=== PATIENT | female | born 2000 | race Caucasian/White ===

== ENCOUNTER 2023-08-04 09:33 | Emergency (ER) | payer BC, MEDICAID, SELFPAY ==
[2023-08-04 09:47] VITALS: BP 140/86; PULSE 90; RESP 16; TEMP 36.6; O2SAT 100; BMI 34.5
--- NOTE | 2023-08-04 10:03 | W.ED.RECABL ---
Documented by User: Steff Key, CAT[employer] UNIT OPERATOR-C 08/04/23 13:56 HPI - Recheck/Abnormal Lab/Rx General: Chief Complaint: Recheck/Abnormal Lab/Rx Stated Complaint: sent by white/abn lab Time Seen by Provider: 08/04/23 09:52 History of Present Illness: Patient reports today for low hemoglobin. She states that she had went to her primary care provider to have blood work yesterday because she had been feeling more mentally exhausted and tired than typical. She reports that she has really no other symptoms at this time. She reports that she received a call this morning that her hemoglobin was extremely low and she needed to come directly to the emergency department. Patient reports feeling generally well. She denies fever, chills, nausea, vomiting. She denies chest pain or shortness of breath. She denies any pain. She denies any bleeding in her urine or her bowels. She states that she is on the tail end of her menstrual cycle which is typically very irregular. She denies any abnormal or heavy bleeding or clotting. She denies . Review of Systems Const: Denies: fever(s), chills or body aches Eyes: Denies: change in vision or blurry vision Card: Denies: chest pain, palpitations, irregular heart rhythm, lightheadedness or syncope Resp: Denies: dyspnea, productive cough or non-productive cough GI: Denies: abdominal pain, nausea or vomiting : Denies: flank pain, difficulty voiding, dysuria, urinary frequency, urinary urgency or urinary hesitancy Musc: Denies: neck pain or back pain Neuro: Denies: headache(s), numbness in extremities or weakness in extremities Physical Exam Const: COMMON NORMALS: no acute distress, patient oriented x3 and alert GENERAL APPEARANCE: cooperative ORIENTATION/CONSCIOUSNESS: Yes awake, Yes oriented to person, Yes oriented to place and Yes oriented to time Neck/C-Spine: COMMON NORMALS: full ROM Resp: COMMON NORMALS: normal respiratory effort, No retractions, No use of accessory muscles and clear to auscultation bilaterally EFFORT & INSPECTION: Yes symmetric chest movement AUSCULTATION: clear to auscultation bilaterally Cardio: COMMON NORMALS: regular rate, regular rhythm, S1 normal heart sound present and S2 normal heart sound present RATE: regular rate RHYTHM: regular rhythm HEART SOUNDS: S1 normal heart sound present and S2 normal heart sound present GI: COMMON NORMALS: Normal to inspection, nondistended, normoactive bowel sounds present, Soft to palpation, non-tender, No hepatosplenomegaly present, no masses and no bruits INSPECTION: Yes normal to inspection PALPATION: Yes Soft to palpation and Yes No hepatosplenomegaly present : COMMON NORMALS: Yes no CVA tenderness BLADDER/KIDNEY EXAM: Yes no CVA tenderness Back/Pelvis: COMMON NORMALS: no CVA tenderness Neuro: COMMON NORMALS: patient oriented x3 SENSORIUM/ORIENTATION: Yes alert, Yes oriented to person, Yes oriented to place and Yes oriented to time Psych: COMMON NORMALS: cooperative Skin: NARRATIVE SKIN EXAM: Pale skin tone Course Vital Signs: Vital signs: Vital Signs Temperature 97.8 F 08/04/23 09:47 Pulse Rate 90 08/04/23 09:47 Respiratory Rate 16 08/04/23 09:47 Blood Pressure 140/86 08/04/23 09:47 Pulse Oximetry 100 08/04/23 09:47 Oxygen Delivery Me thod Room Air 08/04/23 09:47 MDM - Recheck/Abnormal Lab/Rx Medical Decision Making This is a 22-year-old female who presented today for low hemoglobin. She reports the only symptom she has had is decreased energy feeling mental fog. She reports that she did try and donate blood not long ago and was declined because her hemoglobin was low. She does offer that she has a diet that is not rich in nutrients. She eats a lot of junk food and fast food. She does not eat a lot of red meat. She does not take her multivitamin. It was reported that her hemoglobin was 6.5 from the primary care provider. Recheck in the ER hemoglobin is 6.7 with an MCV of 66. I have discussed this case at length with Dr. Jensen. Full anemia panel was added on. He agrees with discharging the patient to go to the outpatient facility at the [facility] for blood transfusion. 2 units of packed red blood cells with premedication with Benadryl and Tylenol are ordered. Patient is encouraged to continue taking her iron at home. Follow-up with her primary care provider in the next 3 to 5 days. Return to the ER as needed for new or worsening symptoms Lab Data 08/04/23 10:00 08/04/23 10:00 Laboratory Results WBC 8.42 10^3/uL (3.29-11.43) 08/04/23 10:00 RBC 4.07 10^6/uL (3.85-5.65) 08/04/23 10:00 Hgb 6.70 g/dL (11.27-16.99) L 08/04/23 10:00 Hct 27.0 % (36-47) L 08/04/23 10:00 MCV 66.3 fl (85-98) L 08/04/23 10:00 MCH 16.5 pg (27-33) L 08/04/23 10:00 MCHC 24.8 g/dL (30-55) L 08/04/23 10:00 RDW 20.3 % (12.1-15.1) H 08/04/23 10:00 Plt Count 440 10^3/cmm (157-399) H 08/04/23 10:00 MPV 9.9 fL (7.4-10.4) 08/04/23 10:00 Neut % (Auto) 50.4 % 08/04/23 10:00 Lymph % (Auto) 36.7 % 08/04/23 10:00 [place] % (Auto) 9.4 % 08/04/23 10:00 Eos % (Auto) 2.0 % 08/04/23 10:00 Baso % (Auto) 1.1 % 08/04/23 10:00 Reticulocyte % (Auto) 2.3 % (0.5-2.0) H 08/04/23 10:00 Neut # (Auto) 4.25 10^3/uL (1.8-7.7) 08/04/23 10:00 Lymph # (Auto) 3.1 10^3/uL (0.8-4.8) 08/04/23 10:00 [place] # (Auto) 0.8 10^3/uL (0.2-0.9) 08/04/23 10:00 Eos # (Auto) 0.2 10^3/uL (0.0-0.8) 08/04/23 10:00 Baso # (Auto) 0.1 10^3/uL (0.0-0.1) 08/04/23 10:00 Nucleated RBC % (auto) 0.4 % 08/04/23 10:00 Nucleated RBCs # 0.0 /100WBC 08/04/23 10:00 Sodium 137 mmol/L (136-145) 08/04/23 10:00 Potassium 4.1 mmol/L (3.5-5.1) 08/04/23 10:00 Chloride 103 mmol/L (98-107) 08/04/23 10:00 Carbon Dioxide 22 mmol/L (22-29) 08/04/23 10:00 Anion Gap 16.1 (5-19) 08/04/23 10:00 BUN 7 mg/dL (6-20) 08/04/23 10:00 Creatinine 0.7 mg/dL (0.5-0.9) 08/04/23 10:00 GFR Calculation 103.7 mL/min (90-130) 08/04/23 10:00 Glucose 98 mg/dL (65-115) 08/04/23 10:00 Calculated Osmolality 282 mOsm/kg (285-295) L 08/04/23 10:00 Calcium 9.0 mg/dL (8.5-10.5) 08/04/23 10:00 Iron 12 ug/dL (37-145) L 08/04/23 10:00 TIBC 412 mcg/dl 08/04/23 10:00 % Saturation 2.9 % (20-50) L 08/04/23 10:00 Unsat Iron Binding 400 ug/dL (112-347) H 08/04/23 10:00 Ferritin 8 ng/mL (15-150) L 08/04/23 10:00 Total Bilirubin 0.2 mg/dL (0.15-1.2) 08/04/23 10:00 AST 14 U/L (0-32) 08/04/23 10:00 ALT 15 U/L (0-33) 08/04/23 10:00 Alkaline Phosphatase 65 U/L (35-105) 08/04/23 10:00 Total Protein 6.7 g/dL (6.6-8.7) 08/04/23 10:00 Albumin 4.6 g/dL (3.5-5.2) 08/04/23 10:00 Globulin 2.1 g/dL (1.3-4.6) 08/04/23 10:00 Vitamin B12 248 pg/mL (232-1245) 08/04/23 10:00 Folate < 20.0 ng/mL (4.8-37.3) 08/04/23 10:00 HCG, Qual Negative (Negative) 08/04/23 10:00 Blood Type Cancelled 08/04/23 10:37 Rho(D) Type Cancelled 08/04/23 10:37 Antibody Screen Cancelled 08/04/23 10:37 Crossmatch See Detail 08/04/23 10:37 Discharge Plan Discharge Patient Disposition: Home Clinical Impression: Iron (Fe) deficiency anemia Condition: Stable Prescriptions: No Action No Known Home Medications Discharge Orders: Discharge ED (Routine); Ordered 08/04/23 Ordered By: Steff Key Referrals: Thuy Johnson FNP [Primary Care Provider] - Discharge Diet: Usual diet Discharge Activity: Resume usual activity Patient Instructions: Blood Transfusion, Anemia (ED) Activity Restrictions/Additional Instructions: Go to the [facility] registration and check-in. When you check-in let them know that you are there for blood transfusion. Follow-up with your primary care provider. Start taking your iron supplementation that you have at home. Return to the ER for any new or worsening symptoms. Coding Level of Care Code ED Core Laying Machine Operator for Chg Fwd Documented by User: Ravin Jensen DO 08/04/23 14:48 HPI - Recheck/Abnormal Lab/Rx General: Chief Complaint: Recheck/Abnormal Lab/Rx Stated Complaint: sent by lucie/zuly ye Time Seen by Provider: 08/04/23 09:52 Course Vital Signs: Vital signs: Vital Signs Temperature 97.8 F 08/04/23 09:47 Pulse Rate 90 08/04/23 09:47 Respiratory Rate 16 08/04/23 09:47 Blood Pressure 140/86 08/04/23 09:47 Pulse Oximetry 100 08/04/23 09:47 Oxygen Delivery Me thod Room Air 08/04/23 09:47 MDM - Recheck/Abnormal Lab/Rx Medical Decision Making This is a 22-year-old female who presented today for low hemoglobin. She reports the only symptom she has had is decreased energy feeling mental fog. She reports that she did try and donate blood not long ago and was declined because her hemoglobin was low. She does offer that she has a diet that is not rich in nutrients. She eats a lot of junk food and fast food. She does not eat a lot of red meat. She does not take her multivitamin. It was reported that her hemoglobin was 6.5 from the primary care provider. Recheck in the ER hemoglobin is 6.7 with an MCV of 66. I have discussed this case at length with Dr. Jensen. Full anemia panel was added on. He agrees with discharging the patient to go to the outpatient facility at the [facility] for blood transfusion. 2 units of packed red blood cells with premedication with Benadryl and Tylenol are ordered. Patient is encouraged to continue taking her iron at home. Follow-up with her primary care provider in the next 3 to 5 days. Return to the ER as needed for new or worsening symptoms Chart reviewed and patient discussed with midlevel. Agree with assessment and plan. Lab Data 08/04/23 10:00 08/04/23 10:00 Laboratory Results WBC 8.42 10^3/uL (3.29-11.43) 08/04/23 10:00 RBC 4.07 10^6/uL (3.85-5.65) 08/04/23 10:00 Hgb 6.70 g/dL (11.27-16.99) L 08/04/23 10:00 Hct 27.0 % (36-47) L 08/04/23 10:00 MCV 66.3 fl (85-98) L 08/04/23 10:00 MCH 16.5 pg (27-33) L 08/04/23 10:00 MCHC 24.8 g/dL (30-55) L 08/04/23 10:00 RDW 20.3 % (12.1-15.1) H 08/04/23 10:00 Plt Count 440 10^3/cmm (157-399) H 08/04/23 10:00 MPV 9.9 fL (7.4-10.4) 08/04/23 10:00 Neut % (Auto) 50.4 % 08/04/23 10:00 Lymph % (Auto) 36.7 % 08/04/23 10:00 [place] % (Auto) 9.4 % 08/04/23 10:00 Eos % (Auto) 2.0 % 08/04/23 10:00 Baso % (Auto) 1.1 % 08/04/23 10:00 Reticulocyte % (Auto) 2.3 % (0.5-2.0) H 08/04/23 10:00 Neut # (Auto) 4.25 10^3/uL (1.8-7.7) 08/04/23 10:00 Lymph # (Auto) 3.1 10^3/uL (0.8-4.8) 08/04/23 10:00 [place] # (Auto) 0.8 10^3/uL (0.2-0.9) 08/04/23 10:00 Eos # (Auto) 0.2 10^3/uL (0.0-0.8) 08/04/23 10:00 Baso # (Auto) 0.1 10^3/uL (0.0-0.1) 08/04/23 10:00 Nucleated RBC % (auto) 0.4 % 08/04/23 10:00 Nucleated RBCs # 0.0 /100WBC 08/04/23 10:00 Sodium 137 mmol/L (136-145) 08/04/23 10:00 Potassium 4.1 mmol/L (3.5-5.1) 08/04/23 10:00 Chloride 103 mmol/L (98-107) 08/04/23 10:00 Carbon Dioxide 22 mmol/L (22-29) 08/04/23 10:00 Anion Gap 16.1 (5-19) 08/04/23 10:00 BUN 7 mg/dL (6-20) 08/04/23 10:00 Creatinine 0.7 mg/dL (0.5-0.9) 08/04/23 10:00 GFR Calculation 103.7 mL/min (90-130) 08/04/23 10:00 Glucose 98 mg/dL (65-115) 08/04/23 10:00 Calculated Osmolality 282 mOsm/kg (285-295) L 08/04/23 10:00 Calcium 9.0 mg/dL (8.5-10.5) 08/04/23 10:00 Iron 12 ug/dL (37-145) L 08/04/23 10:00 TIBC 412 mcg/dl 08/04/23 10:00 % Saturation 2.9 % (20-50) L 08/04/23 10:00 Unsat Iron Binding 400 ug/dL (112-347) H 08/04/23 10:00 Ferritin 8 ng/mL (15-150) L 08/04/23 10:00 Total Bilirubin 0.2 mg/dL (0.15-1.2) 08/04/23 10:00 AST 14 U/L (0-32) 08/04/23 10:00 ALT 15 U/L (0-33) 08/04/23 10:00 Alkaline Phosphatase 65 U/L (35-105) 08/04/23 10:00 Total Protein 6.7 g/dL (6.6-8.7) 08/04/23 10:00 Albumin 4.6 g/dL (3.5-5.2) 08/04/23 10:00 Globulin 2.1 g/dL (1.3-4.6) 08/04/23 10:00 Vitamin B12 248 pg/mL (232-1245) 08/04/23 10:00 Folate < 20.0 ng/mL (4.8-37.3) 08/04/23 10:00 HCG, Qual Negative (Negative) 08/04/23 10:00 Blood Type Cancelled 08/04/23 10:37 Rho(D) Type Cancelled 08/04/23 10:37 Antibody Screen Cancelled 08/04/23 10:37 Crossmatch See Detail 08/04/23 10:37 Discharge Plan Discharge Patient Disposition: Home Clinical Impression: Iron (Fe) deficiency anemia Condition: Stable Prescriptions: No Action No Known Home Medications Discharge Orders: Discharge ED (Routine); Ordered 08/04/23 Ordered By: Steff Key Referrals: Thuy Johnson FNP [Primary Care Provider] - Discharge Diet: Usual diet Discharge Activity: Resume usual activity Patient Instructions: Blood Transfusion, Anemia (ED) Activity Restrictions/Additional Instructions: Go to the [facility] registration and check-in. When you check-in let them know that you are there for blood transfusion. Follow-up with your primary care provider. Start taking your iron supplementation that you have at home. Return to the ER for any new or worsening symptoms. Coding Level of Care Code ED Core Laying Machine Operator for Raúl Pierce
[2023-08-04 10:13] LABS: Basophils # 0.1 10^3/uL (0.0-0.1); Basophils % 1.1 %; Eosinophils # 0.2 10^3/uL (0.0-0.8); Lymphocytes # 3.1 10^3/uL (0.8-4.8); Lymphocytes % 36.7 %; Mean Corpuscular HGB Conc 24.8 g/dL (30-55); Mean Corpuscular Hemoglobin 16.5 pg (27-33); Mean Corpuscular Volume 66.3 fl (85-98); Mean Platelet Volume 9.9 fL (7.4-10.4); Monocytes # 0.8 10^3/uL (0.2-0.9); Monocytes % 9.4 %; Neutrophils # 4.25 10^3/uL (1.8-7.7); Neutrophils % 50.4 %; Nucleated Red Blood Cells % 0.4 %; Platelet Count 440 10^3/cmm (157-399); Red Blood Count 4.07 10^6/uL (3.85-5.65); Red Cell Distribution Width 20.3 % (12.1-15.1); White Blood Count 8.42 10^3/uL (3.29-11.43)
[2023-08-04 10:30] LABS: Alanine Aminotransferase 15 U/L (0-33); Albumin Level 4.6 g/dL (3.5-5.2); Alkaline Phosphatase 65 U/L (35-105); Anion Gap 16.1 (5-19); Aspartate Amino Transferase 14 U/L (0-32); Blood Urea Nitrogen 7 mg/dL (6-20); Carbon Dioxide 22 mmol/L (22-29); Chloride 103 mmol/L (98-107); Globulin 2.1 g/dL (1.3-4.6); Glomerular Filtration Rate 103.7 mL/min (90-130); Glucose 98 mg/dL (65-115); Osmolality Calculated 282 mOsm/kg (285-295); Potassium 4.1 mmol/L (3.5-5.1); Sodium 137 mmol/L (136-145); Total Bilirubin 0.2 mg/dL (0.15-1.2); Total Protein 6.7 g/dL (6.6-8.7)
[2023-08-04 10:37] LABS: HCG, Serum Qual Negative (Negative); Reticulocyte % 2.3 % (0.5-2.0)
[2023-08-04 11:02] LABS: Ferritin 8 ng/mL (15-150); Iron 12 ug/dL (37-145); Percent Saturation 2.9 % (20-50); Total Iron Binding Capacity 412 mcg/dl; Unsaturated Iron Binding 400 ug/dL (112-347)
[2023-08-04 11:13] LABS: Folate Level < 20.0 ng/mL (4.8-37.3)
[2023-08-04 11:14] LABS: Vitamin B12 248 pg/mL (232-1245)
== END 2023-08-04 11:59 | disposition home or self-care (01) ==
PROVIDERS: Family Medicine; Emergency Provider Nurse Practitioner Family; PCP Nurse Practitioner Family
DX: D50.9 Iron deficiency anemia, unspecified (principal)
CPT/HCPCS: 80053; 80503; 82607; 82728; 82746; 83540; 83550; 84703; 85025; 85045; 99283

== ENCOUNTER 2023-08-04 12:02 | Oncology outpatient (recurring) (ONCR) | payer BC, MEDICAID, SELFPAY ==
[2023-08-04] VITALS (11 sets, daily range): BP systolic 112–122; BP diastolic 68–81; PULSE 85–93; RESP 16–18; TEMP 36.2–36.6; O2SAT 99–100
[2023-08-04] MEDS: acetaminophen 325 mg Tablet 650 MG PO (12:48)
[2023-08-04] MEDS: diphenhydrAMINE 25 mg Capsule PO (12:48)
[2023-08-04] MEDS: sodium chloride 0.9% 250 ML 75 ML IV (12:55)
== END 2023-08-27 23:59 | disposition home or self-care (01) ==
LOC: ONCMED 12:03
PROVIDERS: PCP Nurse Practitioner Family; Visit Provider Nurse Practitioner Family
DX: D50.9 Iron deficiency anemia, unspecified (principal)
CPT/HCPCS: 36415; 36430; 86850; 86900; 86920; J7050; P9016